=== PATIENT | female | born 1995 | race African-American/Black ===

== ENCOUNTER 2017-04-28 09:45 | Emergency (ER) | payer OTHER ==
[~2017-04-28] VITALS: Ht 162.6 cm; Wt 74.6 kg
[2017-04-28] MEDS ORDERED: PREN27TA3 PO (09:51)
[2017-04-28 10:30] LABS: BASO % 0.3 % (0.0-1.0); EOS # 0.2 K/mm3 (0.0-0.50); EOS % 1.7 % (0.0-3.0); LARGE UNSTAINED CELL # 0.1 K/mm3 (0.0-0.4); LARGE UNSTAINED CELL % 1.3 % (0.0-4.0); LYMPH # 1.2 K/mm3 (1.5-6.5); LYMPH % 12.8 % (24.0-44.0); MEAN CORPUSCULAR HGB CONC 33.7 g/dl (32.0-36.5); MONO # 0.4 K/mm3 (0.0-0.8); MONO % 4.3 % (0.0-5.0); NEUTROPHILS # 7.7 K/mm3 (1.8-7.7); NEUTROPHILS % 79.7 % (36.0-66.0); PLATELET COUNT, AUTOMATED 266 k/mm3 (150-450); RED CELL DISTRIBUTION WIDTH 13.2 % (11.5-14.5); WHITE BLOOD COUNT 9.6 K/mm3 (4.0-10.0)
--- NOTE | 2017-04-28 11:18 | REP ---
FIRST TRIMESTER ULTRASOUND: HISTORY: Vaginal bleeding. A single intrauterine is present. [place]-rump length is 0.5 cm, corresponding to a gestational age of 6 weeks 3 days. heart rate is 147 beats per minute. A hemorrhagic cyst is present in the right ovary. This measures 1.8 x 1.6 cm. The left ovary is normal in appearance. There is no fluid in the cul-de-sac. IMPRESSION: There is a single intrauterine with a gestational age by ultrasound of 6 weeks 3 days. A repeat examination in 19-20 weeks is recommended for further evaluation. Signed by Cesar Estrada MD 04/28/2017 11:20 A
[2017-04-28] MEDS ORDERED: METR0.7512 PV (11:49)
[2017-04-28 12:31] VITALS: BP 121/67
== END 2017-04-28 12:32 | disposition home or self-care (01) ==
LOC: M ED 10:46
DX: O23.591 Infection of other part of genital tract in pregnancy, first trimester (principal); Z3A.01 Less than 8 weeks gestation of pregnancy; Z79.899 Other long term (current) drug therapy

== ENCOUNTER 2017-11-30 09:46 | Outpatient (CLI) | payer OTHER | END 2017-11-30 11:20 | disposition home or self-care (01) | LOC: M LDO 09:46 | DX: O26.893 Other specified pregnancy related conditions, third trimester (principal); N89.8 Other specified noninflammatory disorders of vagina; Z3A.37 37 weeks gestation of pregnancy | CPT/HCPCS: 59025 ==

== ENCOUNTER 2017-12-13 20:49 | Inpatient (IN) | payer OTHER ==
[2017-12-13 22:02] LABS: HEMATOCRIT 35.2 % (36.0-47.0); HEMOGLOBIN 11.6 g/dl (12.0-16.0); MEAN CORPUSCULAR HEMOGLOBIN 29.7 pg (27.0-33.0); PLATELET COUNT, AUTOMATED 196 10^3/uL (150-450); RED BLOOD COUNT 3.91 10^6/uL (4.00-5.40)
[2017-12-13] MEDS ORDERED: FENTANYL 2MCG/ML ROPIVACAINE 0.2% IN 0.9% NACL 200ML IVBAG As Ordered (22:30)
[2017-12-13] MEDS: LR 1,000 ML IV (23:20)
[2017-12-13] MEDS: LACTATED RINGER'S 1000 ML IV (23:20)
[2017-12-13] MEDS: OXYTOCIN DRIP 30 UNITS in APPROPRIATE DILUENT 1 EA IV (23:40)
[2017-12-14] MEDS ORDERED: EPIDURAL COMMENT XX (00:15)
[2017-12-14] MEDS ORDERED: EPIDURAL/PCA KEYS XX (00:15)
[2017-12-14] MEDS ORDERED: NALOXONE INJ 0.4 MG/1 ML VIAL (J2310) IV (00:15)
[2017-12-14] MEDS ORDERED: REFRIGERATOR IV KEYS XX (00:15)
[2017-12-14] MEDS ORDERED: ONDANSETRON 4MG/2ML VIAL (J2405) IV (00:15)
[2017-12-14] MEDS ORDERED: LACTATED RINGER'S 1000 ML IV (00:15)
[2017-12-14] MEDS: FENTANYL/ROPIVACAINE/NACL BAG 200 ML EPIDURAL (00:15)
[2017-12-14] MEDS ORDERED: diphenhydrAMINE INJ 50MG/ML VIAL (J1200) IV (00:15)
[2017-12-14] MEDS ORDERED: ePHEDrine INJ 50 MG/ML VIAL IV (00:15)
[2017-12-14 03:58] LABS: CORD GAS ABE A -2.2; CORD GAS HCO3 A 23.9 MEQ/L; CORD GAS O2 SAT A 62.9 %; CORD GAS PCO2 A 45.5 mmHg; CORD GAS PH A 7.338 UNITS; CORD GAS PO2 A 26.5 mmHg; CORD GAS SBC A 21.7 MEQ/L; CORD GAS TCO2 A 25.3 MEQ/L
[2017-12-14 03:59] LABS: CORD GAS ABE V -0.4; CORD GAS HCO3 V 25.9 MEQ/L; CORD GAS O2 SAT V 58.2 %; CORD GAS PCO2 V 47.9 mmHg; CORD GAS PH V 7.351 UNITS; CORD GAS PO2 V 23.9 mmHg; CORD GAS TCO2 V 27.4 MEQ/L
[2017-12-14] MEDS ORDERED: MOM 30ML SUSPENSION UDC PO (04:30)
[2017-12-14] MEDS ORDERED: MEASLES,MUMPS,RUBELLA VACCINE INJ (MMR-II) (90707) SC (04:30)
[2017-12-14] MEDS ORDERED: ACETAMINOPHEN 500 MG TAB PO (04:30)
[2017-12-14] MEDS ORDERED: ANUSOL HC CREAM 30GM TOP (04:30)
[2017-12-14] MEDS ORDERED: DIBUCAINE 1% OINTMENT 30GM TOP (04:30)
[2017-12-14] MEDS ORDERED: METHYLERGONOVINE MALEATE 0.2 MG TAB PO (04:30)
[2017-12-14] MEDS ORDERED: DOCUSATE SODIUM 100 MG CAP PO (04:30)
[2017-12-14] MEDS ORDERED: RHOGAM 300 MCG (1500 IU) INJ (J2790) IM (04:30)
[2017-12-14] MEDS: OXYTOCIN INJ 10 UNITS/ML VIAL (J2590) IV (05:13)
[2017-12-14] MEDS: PRENATAL VITAMINS CHEWABLE TABLET PO (08:10)
[2017-12-14] MEDS: IBUPROFEN 800 MG TAB PO ×2 (09:35→20:53)
[2017-12-15] MEDS: IBUPROFEN 800 MG TAB PO ×2 (05:38→19:57)
[2017-12-15 07:04] LABS: HEMATOCRIT 33.9 % (36.0-47.0); HEMOGLOBIN 11.2 g/dl (12.0-16.0); MEAN CORPUSCULAR HEMOGLOBIN 29.8 pg (27.0-33.0); MEAN CORPUSCULAR VOLUME 90.2 fl (80.0-96.0); PLATELET COUNT, AUTOMATED 175 10^3/uL (150-450); RED BLOOD COUNT 3.76 10^6/uL (4.00-5.40); RED CELL DISTRIBUTION WIDTH 15.1 % (11.5-14.5); WHITE BLOOD COUNT 11.3 10^3/uL (4.0-10.0)
[2017-12-15] MEDS: PRENATAL VITAMINS CHEWABLE TABLET PO (08:10)
[2017-12-16] MEDS: PRENATAL VITAMINS CHEWABLE TABLET PO (08:21)
[2017-12-16] MEDS: IBUPROFEN 800 MG TAB PO (08:21)
== END 2017-12-16 11:30 | disposition home or self-care (01) | DRG 775 ==
LOC: M LDO 20:49 → M OBS 12-14 07:28 → M LDI 21:24
PROC: 10E0XZZ Delivery of Products of Conception, External Approach (ICD-10-PCS; principal; 2017-12-14)
DX: O80 Encounter for full-term uncomplicated delivery (principal); Z37.0 Single live birth; Z3A.37 37 weeks gestation of pregnancy

== ENCOUNTER 2018-02-02 14:18 | Emergency (ER) | payer OTHER ==
[2018-02-02 16:21] LABS: BASO % 0.4 % (0.0-1.0); EOS # 0.1 10^3/uL (0.0-0.50); EOS % 1.5 % (0.0-3.0); HEMOGLOBIN 14.3 g/dl (12.0-16.0); IMMATURE GRANULOCYTE % 0.2 % (0-3.0); LYMPH # 1.5 10^3/uL (1.5-6.5); LYMPH % 27.5 % (24.0-44.0); MEAN CORPUSCULAR HEMOGLOBIN 29.4 pg (27.0-33.0); MEAN CORPUSCULAR HGB CONC 33.3 g/dl (32.0-36.5); MEAN CORPUSCULAR VOLUME 88.3 fl (80.0-96.0); MONO # 0.5 10^3/uL (0.0-0.8); MONO % 9.7 % (0.0-5.0); NEUTROPHILS # 3.3 10^3/uL (1.8-7.7); NEUTROPHILS % 60.7 % (36.0-66.0); PLATELET COUNT, AUTOMATED 265 10^3/uL (150-450); RED BLOOD COUNT 4.87 10^6/uL (4.00-5.40); WHITE BLOOD COUNT 5.4 10^3/uL (4.0-10.0)
[2018-02-02 17:01] LABS: KETONE, URINE AUTO RFX 1+ mg/dL (NEGATIVE); LEUKOCYTE ESTERASE UR AUTO RFX NEGATIVE (NEGATIVE); MUCUS, URINE RFX SMALL (NEGATIVE); NITRITE, URINE AUTO RFX NEGATIVE (NEGATIVE); RBC, URINE AUTO RFX TNTC /HPF (0-3); SPECIFIC GRAVITY UR AUTO RFX 1.029 (1.002-1.035); SQUAM EPITHELIAL CELL UR AURFX 2 /HPF (0-6); WBC, URINE AUTO RFX 5 /HPF (0-3)
== END 2018-02-02 17:31 | disposition home or self-care (01) ==
LOC: M ED 14:18
DX: N93.9 Abnormal uterine and vaginal bleeding, unspecified (principal)
CPT/HCPCS: 76856

== ENCOUNTER 2018-03-26 22:05 | Emergency (ER) | payer OTHER ==
[2018-03-27 00:45] LABS: BASO % 0.5 % (0.0-1.0); EOS # 0.2 10^3/uL (0.0-0.50); EOS % 2.3 % (0.0-3.0); HEMATOCRIT 35.8 % (36.0-47.0); HEMOGLOBIN 11.9 g/dl (12.0-15.5); IMMATURE GRANULOCYTE % 0.3 % (0-3.0); LYMPH # 1.8 10^3/uL (1.5-6.5); LYMPH % 26.6 % (24.0-44.0); MEAN CORPUSCULAR HEMOGLOBIN 30.8 pg (27.0-33.0); MEAN CORPUSCULAR HGB CONC 33.2 g/dl (32.0-36.5); MEAN CORPUSCULAR VOLUME 92.7 fl (80.0-96.0); MONO # 0.7 10^3/uL (0.0-0.8); MONO % 10.2 % (0.0-5.0); NEUTROPHILS % 60.1 % (36.0-66.0); PLATELET COUNT, AUTOMATED 246 10^3/uL (150-450); RED BLOOD COUNT 3.86 10^6/uL (4.00-5.40); RED CELL DISTRIBUTION WIDTH 14.2 % (11.5-14.5); WHITE BLOOD COUNT 6.6 10^3/uL (4.0-10.0)
[2018-03-27 00:48] LABS: CONTROL LINE UCG INT CTR LINE PRESENT; URINE PREG TEST NEGATIVE (NEGATIVE)
[2018-03-27 00:50] LABS: KETONE, URINE AUTO RFX TRACE mg/dL (NEGATIVE); MUCUS, URINE RFX SMALL (NEGATIVE); NITRITE, URINE AUTO RFX NEGATIVE (NEGATIVE); RBC, URINE AUTO RFX 2 /HPF (0-3); SPECIFIC GRAVITY UR AUTO RFX 1.028 (1.002-1.035); SQUAM EPITHELIAL CELL UR AURFX 23 /HPF (0-6); WBC, URINE AUTO RFX 7 /HPF (0-3)
[2018-03-27 00:51] LABS: LEUKOCYTE ESTERASE UR AUTO RFX 3+ (NEGATIVE)
[2018-03-27 01:07] LABS: ALBUMIN 3.7 GM/DL (3.2-5.2); ALBUMIN/GLOBULIN RATIO 1.06 (1.00-1.93); ALKALINE PHOSPHATASE 54 U/L (45-117); ALT/SGPT 17 U/L (12-78); ANION GAP 5 MEQ/L (8-16); AST/SGOT 19 U/L (7-37); BILIRUBIN,DIRECT < 0.1 MG/DL (0.0-0.2); BILIRUBIN,TOTAL 0.2 MG/DL (0.2-1.0); BLOOD UREA NITROGEN 14 MG/DL (7-18); CALCIUM LEVEL 9.1 MG/DL (8.5-10.1); CARBON DIOXIDE LEVEL 26 MEQ/L (21-32); CHLORIDE LEVEL 106 MEQ/L (98-107); CREATININE FOR GFR 0.82 MG/DL (0.55-1.30); GLOMERULAR FILTRATION RATE > 60.0 (>60); GLUCOSE, FASTING 84 MG/DL (70-100); LIPASE 159 U/L (73-393); POTASSIUM SERUM 3.8 MEQ/L (3.5-5.1); SODIUM LEVEL 137 MEQ/L (136-145); TOTAL PROTEIN 7.2 GM/DL (6.4-8.2)
[2018-03-27] MEDS: NITROFURANTOIN (MACROBID) 100 MG CAP PO (02:00)
== END 2018-03-27 02:19 | disposition home or self-care (01) ==
LOC: M ED 03-27 02:19
DX: N39.0 Urinary tract infection, site not specified (principal); R10.2 Pelvic and perineal pain; Z79.899 Other long term (current) drug therapy
CPT/HCPCS: 76856

== ENCOUNTER 2018-04-04 08:57 | Emergency (ER) | payer OTHER ==
[2018-04-04 10:13] LABS: KETONE, URINE AUTO RFX TRACE mg/dL (NEGATIVE); MUCUS, URINE RFX MODERATE (NEGATIVE); NITRITE, URINE AUTO RFX NEGATIVE (NEGATIVE); RBC, URINE AUTO RFX 13 /HPF (0-3); SPECIFIC GRAVITY UR AUTO RFX 1.025 (1.002-1.035); SQUAM EPITHELIAL CELL UR AURFX 49 /HPF (0-6)
[2018-04-04 10:50] LABS: LEUKOCYTE ESTERASE UR AUTO RFX 3+ (NEGATIVE); WBC, URINE AUTO RFX 39 /HPF (0-3)
[2018-04-04] MEDS: cefTRIAXone SOD 250 MG VIAL (J0696) IM (11:45)
[2018-04-04] MEDS: AZITHROMYCIN 250 MG TAB PO (11:45)
[2018-04-04 13:05] LABS: CHLAMYDIA DNA AMPLIFICATION POSITIVE (NEGATIVE); GC DNA AMPLIFICATION NEGATIVE (NEGATIVE)
== END 2018-04-04 12:01 | disposition home or self-care (01) ==
LOC: M ED 08:57
DX: N76.0 Acute vaginitis (principal); Z20.2 Contact with and (suspected) exposure to infections with a predominantly sexual mode of transmission
CPT/HCPCS: J0696